=== PATIENT | female | born 1950 | race Caucasian/White ===

== ENCOUNTER 2018-03-07 21:38 | Inpatient (IN) | payer OTHER ==
[~2018-03-07] VITALS: Ht 147.3 cm; Wt 64.1 kg
--- NOTE | ~2018-03-07 | HC ---
[facility] [place] [address] CONSULTATION Name: DARÍO TERRY Room #: 460-P ADM IN M.R.#: [id number] Admission: 03/08/18 Attend Phys: Marilee Diez MD Discharge: Date of : 48 Report #: [id number] THIS REPORT FOR: //name// CC: Vijay MARES PCP DATE OF SERVICE: 03/08/2018 HISTORY OF PRESENT ILLNESS: This is a 67-year-old female patient who is unable to provide any reliable history. Rather, I do not get any history at all in this patient. I reviewed all the records and it looks like this patient was found wandering in [employer]. ER doctor's note was reviewed and it looks like she had paranoid delusion and hallucination. She also has neurological issues, looks like she has tremor in the left upper extremity and that is going on for about 3 years. This is from the patient history, which is unreliable. REVIEW OF SYSTEMS: A 14-point review of systems was carried out. It is very limited. Part of it is from the record, part of it is from the patient. She basically continuously talks. She is not oriented. She can see. She denies any ENT, cardiac, respiratory, GI, , musculoskeletal, constitutional, dermatological, hematological, psychiatric, throat, allergic symptom associated with present symptomatology, but her history is completely unreliable. PAST MEDICAL HISTORY: Positive for some neurological disorder, which is not clear. FAMILY HISTORY: Negative for Parkinson disease. SOCIAL HISTORY: She denies the use of alcohol or tobacco. PHYSICAL EXAMINATION: Pretty limited. She can tell me what month it is, what day it is. She is talking irrelevantly, but is pleasant. She was not actively hallucinating when I saw her. The cranial nerve examination 2-12 was attempted, cooperation was poor, but within cooperation it was mostly unremarkable. The best it could be carried out her strength, sensation, reflexes and tone are symmetrical. There is no meningeal sign. There is no carotid bruit. There is no thyroid mass. She is moderately built individual who does not have any dysmorphic features of eyes, ears and face. Her vision and hearing look adequate. Cardiac examination does not show any abnormality of the heart sounds or any murmur. Respiratory examination showed no rhonchi on either side and there is no respiratory difficulty. Her pulses are palpable. She has no edema, cyanosis or jaundice. Blood pressure is 125/71, respirations 20, pulse is 74, temperature is 97.8. LABORATORY DATA: White count is 10.0 and her sodium is normal. Her vitamin B12 is 298. Her TSH is normal. She did have an MRI of the brain, which [address] [address] CONSULTATION Name: DARÍO TERRY Room #: 460-P ADM IN M.R.#: [id number] Admission: 03/08/18 Attend Phys: Marilee Diez MD Discharge: Date of : 48 Report #: [id number] demonstrates pretty significant disease of the brain, but it is all chronic. Her EEG is pending. IMPRESSION: 1. I suspect she does have some underlying neurological disorder because of the abnormal MRI. It is most likely degenerative disorder. I think some time along the line we might do an LP to complete the workup. 2. She has psychiatric problem and that appeared to be secondary to her pretty significant neurological issues on the MRI, but that needs to be symptomatically managed by Psychiatry and Psychiatry is already following her up. RECOMMENDATIONS: 1. Psychiatric management. 2. We will get an EEG. 3. Some time along the line we may get a spinal tap. 4. I think this patient may need long-term placement. Thank you very much for this referral. <ELECTRONICALLY SIGNED> By: Kristofer Solares MD 03/11/182150 58 15 Kristofer Solares MD /nt
--- NOTE | ~2018-03-07 | HC ---
[facility] [place] [address] CONSULTATION Name: DARÍO TERRY Room #: 460-P [facility] IN M.R.#: [id number] Admission: 03/08/18 Attend Phys: Marilee Diez MD Discharge: 03/12/18 Date of : 48 Report #: [id number] THIS REPORT FOR: //name// CC: NO PCP Marilee Diez DATE OF SERVICE: 03/12/2018 NEUROBEHAVIORAL STATUS EXAM: ATTENDING PHYSICIANS: ANDREW Li. Genie Noble MD, neurologist. MANAGER FIXED INCOME: Jonathon Valle, PhD. CLINICAL PRESENTATION: The patient is a 67-year-old female admitted to the [facility] for evaluation and treatment of confusion and disorientation. She was wandering around the [employer] in a disoriented state when EMS was contacted and the patient was brought into the hospital. She reported being under stress because "white supremacists were after her." The patient appears confused and delusional on admission. She is described as having had an atypical neurological disorder that has progressively worsened. She also is reported to have had behavioral changes that include selling her house, moving and isolating herself from children. Her children had not been able to find her. Her behavior is described as increasingly paranoid and confused. DIAGNOSES ON ADMISSION: Included altered mental status, paranoia and a possible urinary tract infection. Brain MRI on admission revealed ischemic changes consistent with small vessel disease. CT scan of the head without contrast showed no acute intracranial process, atrophy and severe bilateral periventricular and subcortical white matter hypodensity consistent with chronic small vessel ischemic disease. A complete description of her medical condition and history can be found in her medical record. Neuropsychological consultation was requested to provide assistance in the assessment of cognitive and emotional status and to provide recommendations and services. Prior to this recent medical event, she reports having been living independently in her own apartment. The patient describes having been pursued by white supremacist and that contributing to increasing anxiety and agitation. She reports having had 3 children. She has 1 brother and 1 sister. She reports having been living in a senior care community prior to this most recent medical event. She is a high school graduate. She reports going on disability in 1986 after working for [employer] for a period of 6 years. TECHNIQUES UTILIZED: Clinical interview, review of medical records, staff consultation and behavioral observation, mini mental status exam [address] [address] CONSULTATION Name: DARÍO TERRY Room #: 460-P [facility] IN .R.#: [id number] Admission: 03/08/18 Attend Phys: Marilee Diez MD Discharge: 03/12/18 Date of : 48 Report #: [id number] version, verbal fluency assessment (letter and category) and brief abstract reasoning assessment. EXAMINATION FINDINGS: The patient was alert and oriented during the assessment. However, she does not report auditory or visual hallucinations. However, she does describe a delusional ideation. Subjective anxiety and depression are reported. She also reports having difficulty with sleep. Memory is described as inconsistent. There is no evidence of aphasia. Her performance on the MMSE 2 brief version is extremely low with a raw score of 9 of 16. She was 3 of 3 for initial registration, 3 of 5 for orientation to time and 3 of [address]. She was 0 of 3 for immediate recall of 3 items after a brief time delay and distraction. Her performance was extremely low with a T score of 4 and percentile rank of less than 1. Her performance on the MMSE 2 standard version improved to a raw score of 22 of 30, which is a T score of 29 and percentile rank of 2. She was 4 of 5 for serial sevens, 2 of 2 for naming, 1 of 1 for repetition. Comprehension was 3 of 3. She could read and follow a single command and write a sentence. The patient had difficulty, but was able to accurately copy a simple geometric design. Clock drawing was within normal limits. Letter fluency was in the low average range with a raw score of 15, T score of 38 and percentile rank of 17. Category fluency was in the borderline range with a raw score 29, T score of 33, percentile rank of 4. Overall, total fluency was in the borderline range with a raw score of 44, T score 33 and percentile rank of 4. Nzum-mu-hiyygyff deficits in verbal fluency are suggested. This type of a deficit suggests an executive dysfunction. High level abstract reasoning was in the mildly impaired range with a score of 5 of 8 on a brief abstract reasoning test. Her cognitive functioning on the neuro behavioral status exam suggests kaqxevlo-bj-dqhutk impairment in immediate recall, impairment in sustained attention and concentration and mild to moderate impairment in verbal fluency indicating deficits in executive functioning. Her mood does not appear depressed. She does report anxiety and delusional ideation is indicated. DIAGNOSTIC IMPRESSION: 1. Major neurocognitive disorder (dementia) -- with frontotemporal features, with decreased insight -- mild to moderate severity. 2. Delusional disorder. RECOMMENDATIONS: The patient will require 24-hour care that includes assistance in the management of medication, nutrition and finances. The severity of the [facility] [address] [place] [address] CONSULTATION Name: DARÍO TERRY Room #: 460-P DIS IN M.R.#: [id number] Admission: 03/08/18 Attend Phys: Marilee Diez MD Discharge: 03/12/18 Date of : 48 Report #: [id number] delusional ideation places her at a great safety risk. She will need a structured and supervised living environment to maintain safety. Continued psychiatric consultation to assist in the management of medication. A psychiatric hospitalization has been suggested and is likely a good idea to further evaluate delusional ideation and its potential treatment. A followup neuropsychological assessment is indicated to clarify this to let the severity of her neurocognitive deficits and pattern of impairment. Thank you very much for allowing me to provide the consultation on this patient. By: [id number] Jonathon Valle, PhD /nt
--- NOTE | ~2018-03-07 | H ---
[facility] [address] [place] [address] HISTORY AND PHYSICAL Name: DARÍO TERRY Room #: 460-P ADM IN M.R.#: [id number] Admission: 03/08/18 Attend Phys: Vijay Dubon MD Discharge: Date of : 48 Report #: [id number] THIS REPORT FOR: //name// CC: Vijay MARES PCP DATE OF SERVICE: 03/08/2018 CHIEF COMPLAINT: Delusion, confusion. HISTORY OF PRESENT ILLNESS: The patient is a 67-year-old female who was found at [employer] wandering around, being confused. EMS was contacted. The patient was complaining of headaches. She was saying that she is under stress because of white supremacists becoming too much and after her. She was afraid that white supremacists will harm her. The patient is confused, delusional. Chart reviewed, discussed with RN. Apparently, the patient sold her house a couple of years ago and since that time she has been moving around in her car. The patient has delusions. Her family was contacted by ER doctor and apparently her daughter was saying that she had some neurological issues that was getting progressively worse over the years. The patient randomly sold her house and moved away. Her children were not able to find her. She was getting more paranoid, scattered, confused. According to her children, the patient was rapidly declining and her headaches and paranoia have been intensifying. The patient had a CT of the head done in the Emergency Department, which showed no acute process, but a small vessel ischemic disease. The patient's past medical history is not very clear. The patient reports some history of neurological disease, but it is not very clear her past medical history. FAMILY HISTORY: Noncontributory. SOCIAL HISTORY: She denies smoking, no use of alcohol, no illicit drug use. MEDICATIONS: Include Naprosyn 250 mg twice a day, Rocephin for possible UTI and a p.r.n. medication. REVIEW OF SYSTEMS: She denies any fever or chills. She has tremor in the left hand. She is not sure what is the problem she has, stated that she has some neurological disease, but does not know what it is. The patient denies any history of diabetes. No history of heart or lung disease. She denies any pain with urination, denies any weakness in the legs. No history of seizures. PHYSICAL EXAMINATION: GENERAL: The patient not in any distress. She is confused. She did not know that she is in [place], she thought that she is in [place]. She knew that she is in the hospital, but could not tell me why. She knew her name and how old she was, but she could not tell me what year it was or what month. She [facility] [address] [place] [address] HISTORY AND PHYSICAL Name: DARÍO TERRY Room #: 460-P ADM IN M.R.#: [id number] Admission: 03/08/18 Attend Phys: Vijay Dubon MD Discharge: Date of : 48 Report #: [id number] recognized me as a doctor. VITAL SIGNS: Her temperature 36.8, pulse 80, respirations 20, blood pressure 126/76. HEENT: Head normocephalic. Oral mucosa pink, moist. NECK: Supple. LUNGS: Showed clear breath sounds. No wheezes, crackles or rhonchi. CARDIAC: S1, S2 normal. Rhythm is regular. No murmur, rub or gallop. ABDOMEN: Soft, nontender, nondistended, obese. Bowel sounds normoactive. EXTREMITIES: Showed no edema, no calf tenderness. NEUROLOGIC: She is confused, please see discussion above, but no focal deficit. She has tremor in left hand. SKIN: Warm and dry. DIAGNOSTIC DATA: Chest x-ray showed no acute pulmonary process. CT of the head without contrast showed no acute intracranial process, atrophy and severe bilateral periventricular and subcortical white matter hypodensity, most consistent with chronic small vessel ischemic disease. The patient had MRI of the head already and it showed no acute intracranial process, atrophy with severe bilateral periventricular and subcortical white matter hyperintensities most consistent with manifestation of severe small vessel ischemic disease. LABORATORY DATA: White blood cell count 10.6, hemoglobin 13.1, platelets 320,000. Sodium 139, potassium 3.5, BUN 7, creatinine 0.7, glucose 111, bilirubin 0.3, AST 20, ALT 22, alkaline phosphatase 88. Troponin less than 0.04. Albumin 4.1. Urinalysis showed leukocyte esterase 1+, wbc's 6-15, bacteria few. IMPRESSION: 1. Altered mental status, paranoia. 2. Possible urinary tract infection. PLAN: The patient most likely has underlying mental health condition, possibly bipolar. Not on any medication. We will put a consult for Psychiatry and also for Neurology. MRI showed ischemic changes consistent with a small vessel disease. We will put the patient on aspirin. She is on Rocephin for possible urinary tract infection. We will check the patient's TSH, B12 level, folic acid level, RPR. We will place on Lovenox for DVT prophylaxis. <ELECTRONICALLY SIGNED> By: Marilee Diez MD 03/10/18 0021 1402 [id number] Marilee Diez MD /jessie
--- NOTE | ~2018-03-07 | EEG ---
[facility] [place] [address] ELECTROENCEPHALOGRAM Name: DARÍO TERRY Room #: 460-P [facility] IN M.R.#: [id number] Admission: 03/08/18 Attend Phys: Marilee Diez MD Discharge: Date of : 48 Report #: [id number] THIS REPORT FOR: //name// CC: Vijay MARES [facility] DATE OF SERVICE: 03/09/2018 This patient is being evaluated for altered mental status. EEG was done by placing the electrodes by standard 10-20 system of electrode placement. Both referential and sequential montages were used for recording. Background activity in this patient's EEG is about 11 Hz and 40-50 microvolt. It is a symmetrical activity. The patient became drowsy that is associated with bilateral slowing and vertex sharp waves. Photic stimulation was unremarkable. Throughout the record, no active epileptiform activity was noticed. IMPRESSION: This patient's electroencephalogram does not demonstrate any clear-cut epileptiform activity or any definite abnormality. Thank you very much for this referral. <ELECTRONICALLY SIGNED> By: Kristofer Solares MD 03/11/182151 22 31 Kristofer Solares MD /nt
--- NOTE | ~2018-03-07 | HC ---
[facility] [place] [address] CONSULTATION Name: DARÍO TERRY Room #: 460-P ADM IN M.R.#: [id number] Admission: 03/08/18 Attend Phys: Vijay Dubon MD Discharge: Date of : 48 Report #: [id number] THIS REPORT FOR: //name// CC: Vijay Dubon NO PCP DATE OF SERVICE: 03/08/2018 HISTORY OF PRESENT ILLNESS: This is a patient who presented in acute confusional state. She was also delusional. She apparently had been in a [employer], wandering around. "I had been driving and driving, looking at properties." The patient has been complaining of a headache. She is also worried that premises were going to harm her because of her friendship with some individuals. "They tell me they were going to kill my children and my grandchildren." She has been very worried about this. The patient admits that she has been having more trouble with focus, "I have a disease affecting 75% of my brain, but I am actually smarter than average, so it balances out." PAST PSYCHIATRIC HISTORY: Appears there may be some history of a degenerative neurologic condition, but little is known about this. The patient is unable to give me specifics about past physician seen or past medication trials. PAST MEDICAL HISTORY: Neurologic disease per history. SOCIAL HISTORY: She currently has been living alone. She notes she has moved to [place], [place], not too long ago. However, she has moved more than 40 times in her life. When I asked, she clarified that she was not moving to get away from tormentors, but because of the occupations of her first 2 husbands namely "[employer]" All in all, she has been 3 times. She has sons who are supportive. The main contact, I believe, is Alfredo Prasad. MENTAL STATUS EXAMINATION: female, casually dressed, delusional, disorganized, circumstantial thought process, aloof, somewhat disinhibited affect, laughs inappropriately. No suicidal or homicidal ideation. Appears, there are some active delusions of a paranoid nature. Insight and judgment impaired. DIAGNOSES: Mood disorder, not otherwise specified, rule out bipolar disorder, manic, cognitive disorder, not otherwise specified. RECOMMENDATIONS: It appears that family has already been contacted and that they are concerned about her behavior. It appears that some of these changes were noted even going back some months or years, but this is perhaps a more severe episode. [facility] [address] [place] [address] CONSULTATION Name: DARÍO TERRY Room #: 460-P [facility] IN M.R.#: [id number] Admission: 03/08/18 Attend Phys: Vijay Dubon MD Discharge: Date of : 48 Report #: [id number] The patient does have a urinary tract infection, but seems that she has had some symptoms of this nature for over a year. By: [id number] Beny Murry MD /nt
[2018-03-07 22:04] LABS: URINE BILIRUBIN NEGATIVE (Negative); URINE BLOOD TRACE (Negative); URINE CLARITY CLEAR; URINE COLOR YELLOW; URINE GLUCOSE-RANDOM* NEGATIVE (Negative); URINE KETONES NEGATIVE (Negative); URINE LEUKOCYTES 1+ (Negative); URINE NITRITE NEGATIVE (Negative); URINE PROTEIN (DIPSTICK) NEGATIVE (Negative); URINE UROBILINOGEN 0.2 E.U./dl (0.2-1.0)
[2018-03-07 22:12] LABS: SQUAMOUS 0-3 Few /LPF (0-3)
[2018-03-07 22:13] LABS: CASTS None Seen /LPF (None Seen); CRYSTALS None Seen /LPF (None Seen)
[2018-03-07 22:14] LABS: BACTERIA 1-9 Few /HPF (None Seen); URINE RBC None Seen /HPF (0-2); URINE WBC 6-15 Few /HPF (0-5)
[2018-03-07 22:25] LABS: AMP/METHAMP Negative (Negative); BARBITURATES Negative (Negative); BENZODIAZEPINES Negative (Negative); COCAINE Negative (Negative); METHADONE Negative (Negative); OPIATES Negative (Negative); PCP Negative (Negative)
[2018-03-07 23:58] LABS: BASOPHILS 0.3 % (0.0-2.0); HEMATOCRIT 39.3 % (37.0-47.0); HEMOGLOBIN 13.1 gm/dL (12.0-15.0); LYMPHOCYTES 16.2 % (24.0-44.0); MCH 29.6 pg (26.0-34.0); MCHC 33.3 g/dL (28.0-37.0); PLATELET COUNT 320 thou/uL (150-400); POLYS 75.5 % (36.0-66.0); RBC 4.42 mil/uL (4.20-5.00); RDW 14.1 % (10.5-14.5); WBC 10.6 thou/uL (4.0-11.0)
[2018-03-08 00:16] LABS: ANION GAP 8 mmol/L (7-16); BUN 7 mg/dL (7-18); CALCIUM 9.4 mg/dL (8.5-10.1); CHLORIDE 106 mmol/L (98-107); CO2 25 mmol/L (21-32); CREATININE 0.7 mg/dL (0.6-1.0); GLUCOSE 111 mg/dL (74-106); POTASSIUM 3.5 mmol/L (3.5-5.1); SODIUM 139 mmol/L (136-145)
[2018-03-08 00:24] LABS: ALBUMIN 4.1 g/dL (3.4-5.0); SGOT 20 U/L (15-37); SGPT 22 U/L (30-65); TOTAL BILIRUBIN 0.3 mg/dL (<0.1-1.0); TOTAL PROTEIN 7.6 g/dL (6.4-8.2); TROPONIN-I < 0.04 ng/mL (<0.06)
[2018-03-08 01:31] VITALS: BP 149/80
[2018-03-08 02:50] VITALS: BP 136/70
[2018-03-08 03:23] VITALS: BP 135/78
[2018-03-08 09:05] VITALS: BP 126/76
[2018-03-08 15:19] LABS: FOLIC ACID 12.2 ng/mL (8.6-58.9); TSH 0.932 uIU/mL (0.358-3.740)
[2018-03-08 16:35] VITALS: BP 125/71
[2018-03-08 19:49] VITALS: BP 129/76
[2018-03-09 03:48] VITALS: BP 136/73
[2018-03-09 08:00] VITALS: BP 129/77
[2018-03-09 16:00] VITALS: BP 128/69
[2018-03-09 20:49] VITALS: BP 147/81
[2018-03-09 22:44] LABS: URINE BILIRUBIN NEGATIVE (Negative); URINE BLOOD NEGATIVE (Negative); URINE CLARITY CLEAR; URINE COLOR YELLOW; URINE GLUCOSE-RANDOM* NEGATIVE (Negative); URINE KETONES NEGATIVE (Negative); URINE LEUKOCYTES-REFLEX NEGATIVE (Negative); URINE NITRITE-REFLEX NEGATIVE (Negative); URINE PROTEIN (DIPSTICK) NEGATIVE (Negative); URINE SPECIFIC GRAVITY <= 1.005 (1.005-1.035); URINE UROBILINOGEN 0.2 E.U./dl (0.2-1.0)
[2018-03-10 03:34] VITALS: BP 141/76
[2018-03-10 04:40] VITALS: BP 141/76
[2018-03-10 07:41] VITALS: BP 135/73
[2018-03-10 15:43] VITALS: BP 109/58
[2018-03-10 20:00] VITALS: BP 132/67
[2018-03-11 04:20] VITALS: BP 133/68
[2018-03-11 08:09] VITALS: BP 128/70
[2018-03-11] MEDS ORDERED: VITAMIN B-12500 MCG PO (10:57)
[2018-03-11 16:10] VITALS: BP 118/65
[2018-03-11 20:20] VITALS: BP 130/60
[2018-03-12 08:00] VITALS: BP 133/89
[2018-03-12] MEDS ORDERED: ADULT LOW DOSE81 MG PO (12:44)
== END 2018-03-12 16:05 | DRG 885 ==
LOC: ER 21:38 → 4W 03-08 04:14
PROVIDERS: Internal Medicine; Nurse Practitioner Family
DX: F23 Brief psychotic disorder (principal); G93.40 Encephalopathy, unspecified; F03.90 Unspecified dementia, unspecified severity, without behavioral disturbance, psychotic disturbance, mood disturbance, and anxiety; F22 Delusional disorders; E53.8 Deficiency of other specified B group vitamins; R25.1 Tremor, unspecified; F31.9 Bipolar disorder, unspecified; Z79.899 Other long term (current) drug therapy
CPT/HCPCS: 10040